=== PATIENT | male | born 1935 | race Caucasian/White ===

== ENCOUNTER → 2017-09-13 | Day surgery (SDC) | payer MEDICARE ==
[~2017-09-13] VITALS: Ht 177.8 cm; Wt 125.0 kg
[~2017-09-13] MED LIST: AMPICILLIN/SULBAC 3 GM/NS 100 ML IV SCH; ASPI1TAB69 PO; ASPI81TA23 PO; ATEN25TA PO; CALC8.5C CHEW; CHLORHEXIDINE GLUCONATE 2 % 1 PACK (2 CLOTHS) TOPICAL PRN; FENO145T2 PO; FINA5TAB2 PO; FISH1000 PO; INSULIN HUMAN REGULAR 1,000 UNITS/10 ML VIAL SQ PRN; LACTATED RINGER'S 1000 ML IV PRN; LIDOCAINE 0.5%/EPINEPHrine 1:200,000 SOLN 50 ML VIAL ONE; MULT1TAB46 PO; MULT1TAB85 PO; OXYMETAZOLINE HCL 0.05% 15 ML NASAL SPRAY ONE; POVIDONE IODINE 5% (ANTISEPSIS KIT) 4 APPLICATIONS EACH NARE PRN; RED600TA PO; SODIUM CHLORID 0.9% 500 ML IV PRN; TAMS0.4C4 PO; VALS1TAB64 PO; VITA400C28 PO
[2017-09-13 09:35] VITALS: BP 186/121; PULSE 111; RESP 22; TEMP 98; O2SAT 98
--- NOTE | 2017-09-14 16:05 | EKG ---
Date Performed: 09/13/2017 Time Performed: 09:52:45 PTAGE: 82 years EKG: ATRIAL FIBRILLATION WITH RAPID VENTRICULAR RESPONSE ABNORMAL RHYTHM ECG PREVIOUS TRACING : 08/16/2007 14.42 DOCTOR: Baron Alberts Interpretating Date/Time 09/14/2017 16:03:41
== END | disposition home or self-care (01) ==
LOC: PHSDC 08:22
PROVIDERS: ATTEND Otolaryngology
DX: R04.0 Epistaxis (principal); R09.81 Nasal congestion; R94.31 Abnormal electrocardiogram [ECG] [EKG]; Z53.09 Procedure and treatment not carried out because of other contraindication
CPT/HCPCS: 93005; G0463; J7120; 99211

== ENCOUNTER → 2017-11-07 | Outpatient (CLI) | payer MEDICARE ==
[~2017-11-07] MED LIST changes: -AMPICILLIN/SULBAC 3 GM/NS 100 ML IV SCH; -ASPI1TAB69 PO; -CHLORHEXIDINE GLUCONATE 2 % 1 PACK (2 CLOTHS) TOPICAL PRN; -INSULIN HUMAN REGULAR 1,000 UNITS/10 ML VIAL SQ PRN; -LACTATED RINGER'S 1000 ML IV PRN; -LIDOCAINE 0.5%/EPINEPHrine 1:200,000 SOLN 50 ML VIAL ONE; +MACR100C2 PO; -MULT1TAB85 PO; -OXYMETAZOLINE HCL 0.05% 15 ML NASAL SPRAY ONE; -POVIDONE IODINE 5% (ANTISEPSIS KIT) 4 APPLICATIONS EACH NARE PRN; -SODIUM CHLORID 0.9% 500 ML IV PRN
--- NOTE | 2017-11-08 10:25 | RSPPFT ---
DATE OF PROCEDURE: 11/07/17 COMMENTS: Spirometry shows FVC of 3.2 at 88% of predicted, FEV1 of 2.5 at 87%, FEV1/FVC ratio is normal. Flow is normal at FEF 25, FEF 50, FEF 75 and FEF 25-75. There is no response after bronchodilator treatment. Lung volumes show residual volume is normal. TLC is normal. Diffusion capacity is normal. Flow volume loop indicates a normal pattern. Room air arterial blood gases show pH of 7.4, PCO2 of 32, PO2 of 102, BiCarb of 21, and O2 Saturation at 96%. 6-minute walk test shows no de-saturation. IMPRESSION: 1. Normal spirometry. 2. No response after bronchodilator treatment. 3. Normal lung volumes. 4. Diffusion capacity is normal. 5. Blood gases show normal oxygenation. 6. 6-minute walk test shows no de-saturation.
== END ==
LOC: PHRSP 09:30
PROVIDERS: ATTEND Specialist
DX: R06.00 Dyspnea, unspecified (principal)
CPT/HCPCS: 36600; 82805; 94060; 94618; 94726; 94729

== ENCOUNTER 2018-01-10 06:26 | Observation (INO) | payer MEDICARE ==
[~2018-01-10] VITALS: Ht 177.8 cm; Wt 119.9 kg
[2018-01-10] MEDS ORDERED: LIDOCAINE 1%/EPINEPHrine 1:100,000 SOLN 20 ML VIAL ONE (06:51)
[2018-01-10] MEDS ORDERED: OXYMETAZOLINE HCL 0.05% 15 ML NASAL SPRAY ONE (06:51)
[2018-01-10] MEDS ORDERED: LACTATED RINGER'S 1000 ML IV PRN (07:00)
[2018-01-10] MEDS ORDERED: SODIUM CHLORID 0.9% 500 ML IV PRN (07:00)
[2018-01-10] MEDS ORDERED: POVIDONE IODINE 5% (ANTISEPSIS KIT) 4 APPLICATIONS EACH NARE PRN (07:00)
[2018-01-10] MEDS ORDERED: AMPICILLIN/SULBAC 3 GM/NS 100 ML IV SCH ×2 (07:00)
[2018-01-10] MEDS ORDERED: CHLORHEXIDINE GLUCONATE 2 % 1 PACK (2 CLOTHS) TOPICAL PRN (07:00)
[2018-01-10] MEDS ORDERED: NITR1SUB2 SL (07:45)
[2018-01-10] MEDS ORDERED: ATENOLOL 25 MG TAB PO ONE (08:45)
[2018-01-10] MEDS ORDERED: FAMOTIDINE 20 MG/2 ML VIAL ONE (08:46)
[2018-01-10] MEDS ORDERED: fentaNYL CITRATE 250 MCG/5 ML AMP ONE (09:52)
[2018-01-10 11:05] VITALS: PULSE 92
[2018-01-10 11:40] VITALS: O2SAT 99
[2018-01-10] MEDS ORDERED: LIDOCAINE HCL 1% PF 5 ML SYRINGE OTHER ONE (12:00)
[2018-01-10] MEDS ORDERED: SUCCINYLCHOLINE CHLORIDE 200 MG/10 ML VIAL IV ONE (12:00)
[2018-01-10] MEDS ORDERED: ONDANSETRON HCL 4 MG/2 ML VIAL IV ONE (12:00)
[2018-01-10] MEDS ORDERED: ePHEDrine/NS 25 MG/5 ML SYRINGE IV ONE (12:00)
[2018-01-10] MEDS ORDERED: DEXAMETHASONE SOD PHOS 4 MG/ML VIAL IV ONE (12:00)
[2018-01-10] MEDS ORDERED: LACTATED RINGER'S 1000 ML INJ 1,000 ML IV ONE (12:00)
[2018-01-10] MEDS ORDERED: PROPOFOL 200 MG/20 ML AMP IV ONE (12:00)
[2018-01-10] MEDS ORDERED: PHENYLEPH/NS 1000 MCG/10 ML SYR IV ONE (12:00)
[2018-01-10] MEDS: LACTATED RINGER'S 1000 ML INJ 1,000 ML IV SCH (13:15)
[2018-01-10] MEDS ORDERED: ONDANSETRON HCL 4 MG/2 ML VIAL IV PUSH PRN (13:15)
[2018-01-10] MEDS ORDERED: NITROGLYCERIN 0.4 MG SL 25 TABS/BTL SL PRN (13:45)
[2018-01-10] MEDS: ACETAMINOPHEN/HYDROcodone 325 MG/5 MG TAB PO PRN ×2 (15:06→20:09)
[2018-01-10] MEDS: AMPICILLIN/SULBAC 3 GM/NS 100 ML IV SCH ×2 (16:33)
[2018-01-10 20:00] VITALS: BP 138/94; PULSE 87; RESP 20; TEMP 96; O2SAT 96
[2018-01-10] MEDS ORDERED: TAMSULOSIN HCL 0.4 MG CAP PO SCH (21:00)
[2018-01-10 21:43] VITALS: O2SAT 98
[2018-01-11] VITALS: BP 120/79; PULSE 74; RESP 20; TEMP 95.9; O2SAT 98
[2018-01-11] MEDS: ACETAMINOPHEN/HYDROcodone 325 MG/5 MG TAB PO PRN ×2 (00:29→07:59)
[2018-01-11] MEDS: LACTATED RINGER'S 1000 ML INJ 1,000 ML IV SCH (00:30)
[2018-01-11] MEDS: AMPICILLIN/SULBAC 3 GM/NS 100 ML IV SCH ×2 (02:16)
[2018-01-11 08:00] VITALS: BP 114/78; PULSE 89; RESP 19; TEMP 98.2; O2SAT 98
[2018-01-11] MEDS ORDERED: MULTIVITAMIN TAB PO SCH (09:00)
[2018-01-11] MEDS ORDERED: [UNRECOGNIZED DRUG - OTHER] PO SCH (09:00)
[2018-01-11] MEDS ORDERED: ATENOLOL 25 MG TAB PO SCH (09:00)
[2018-01-11] MEDS ORDERED: VALSARTAN 80 MG TAB PO SCH (09:00)
[2018-01-11] MEDS ORDERED: FINASTERIDE 5 MG TAB PO SCH (09:00)
[2018-01-11] MEDS ORDERED: CHOLECALCIFEROL (VIT D3) 400 UNIT TAB PO SCH (09:00)
[2018-01-11] MEDS ORDERED: ASPIRIN EC 81 MG TABEC PO SCH (12:00)
[2018-01-14] MEDS ORDERED: LIDOCAINE HCL 1% PF 5 ML SYRINGE OTHER ONE (12:00)
[2018-01-14] MEDS ORDERED: *Lactated Ringer's INJ 1,000 ML IV ONE (12:00)
[2018-01-14] MEDS ORDERED: PHENYLEPH/NS 1000 MCG/10 ML SYR IV ONE (12:00)
[2018-01-14] MEDS ORDERED: DEXAMETHASONE SOD PHOS 4 MG/ML VIAL IV ONE (12:00)
[2018-01-14] MEDS ORDERED: PROPOFOL 200 MG/20 ML AMP IV ONE (12:00)
[2018-01-14] MEDS ORDERED: ePHEDrine/NS 25 MG/5 ML SYRINGE IV ONE (12:00)
[2018-01-14] MEDS ORDERED: SUCCINYLCHOLINE CHLORIDE 200 MG/10 ML VIAL IV ONE (12:00)
[2018-01-14] MEDS ORDERED: ONDANSETRON HCL 4 MG/2 ML VIAL IV PUSH ONE (12:00)
--- NOTE | 2018-02-01 11:56 | MP ---
cc: Luther Soto MD DATE OF OPERATION: DATE OF OPERATION: 01/10/2018. SURGEON: Dr. Luther Soto. PREOPERATIVE DIAGNOSES: 1. Nasal airway obstruction. 2. Nasal septal deviation. 3. Hypertrophied inferior turbinates. 4. Recurrent epistaxis, bilateral. POSTOPERATIVE DIAGNOSES: 1. Nasal airway obstruction. 2. Nasal septal deviation. 3. Hypertrophied inferior turbinates. 4. Recurrent epistaxis, bilateral. PROCEDURE PERFORMED: 1. Septoplasty. 2. Bilateral submucosal resection of inferior turbinates. 3. Bilateral endoscopic control of epistaxis. INDICATIONS: Documented in the history and physical. DESCRIPTION OF PROCEDURE: The patient was taken to OR #2 and placed in the supine position. Following induction of general anesthesia and intubation the nose was packed bilaterally with cotton pledgets saturated in 0.05% oxymetazoline. The septal mucosa and inferior turbinates were injected with a total of 12 mL of 1% Xylocaine with epinephrine 1:100,000. He was then prepped and draped for surgery. The packing was removed and a hemitransfixion was made in the left nasal vestibule. Through this incision, the mucosa of septum was elevated bilaterally as far as the sphenoid rostrum. Next, 2 x 2.5 cm segment of the quadrangular cartilage was removed, preserving a 1.5 cm dorsal and caudal cartilaginous strut. The bony septum was then removed using Hernandez-Booth forceps and Efren-Hinton septal forceps. The maxillary crest was removed using a 6 mm Brian chisel. The incision was then closed with a running suture of 4-0 chromic and the mucosal layer of the septum were approximated to each other with a quilting stitch of 4-0 plain gut. The inferior turbinates were then relateralized to the lateral nasal wall. When this was completed, the inferior turbinates were addressed. They were fractured out medially and stab incisions were opened along their inferior surfaces and through these incisions the submucosal soft tissue was reduced using a curet and preserving the conchal bone. The incisions were cauterized using the suction Bovie at 35 estes and the remnants of the inferior turbinates were then relateralized to the lateral nasal wall. The nose was then irrigated and suctioned and it was examined using a 0 degree scope. There was evidence of bleeding sites on the lateral nasal wall posteriorly on both sides. These were near the attachments of the posterior end of the middle turbinates. These areas were cauterized as well as some traumatized areas on the superior attachment of the inferior turbinates. The nose was once again irrigated and suctioned. It was filled superiorly with Stammberger sinus foam and inferiorly was 7.5 cm Rapid Rhino packs. Each filled with 7 mL of air. The procedure was then terminated. The patient was reversed from anesthesia and taken to recovery in good condition. There were no complications. Blood loss was 120 mL. MD ABI Huff/LORENA , 11:33 AM , 11:55 AM
== END 2018-01-11 08:49 | disposition home or self-care (01) ==
LOC: PHSDC 06:26 → PH3A 12:38
PROVIDERS: ADMIT Otolaryngology; ATTEND Otolaryngology
DX: J34.89 Other specified disorders of nose and nasal sinuses (principal); J34.2 Deviated nasal septum; J34.3 Hypertrophy of nasal turbinates; R04.0 Epistaxis
CPT/HCPCS: 00160; 30140; 30520; 31238; 94762; 96361; 96365; 96366; G0378; J0295; J0330; J1100; J2370; J2405; J3010; J7120